=== PATIENT | female | born 1975 | race Caucasian/White ===

== ENCOUNTER 2022-08-13 14:17 | Emergency (ER) | payer MEDICAID ==
[~2022-08-13] VITALS: Ht 152.4 cm; Wt 64.0 kg
[2022-08-13 14:47] VITALS: BP 114/88
[2022-08-13 21:09] LABS: BASOPHILS % 0.5 % (0.0-2.0); CHLORIDE 95 mEq/L (98-107); EOSINOPHILS % 4.9 % (0.0-5.0); HEMATOCRIT. 44.5 % (36.0-48.0); HEMOGLOBIN. 15.5 g/dL (12.0-16.0); MEAN CORPUSCULAR HEMOGLOBIN 30.7 pg (28.0-32.0); MEAN PLATELET VOLUME 9.1 fl (7.4-10.4); MONOCYTES % 5.3 % (2.0-8.0); NEUTROPHILS % 54.3 % (40.0-76.0); PLATELET 318 x1000/uL (130-400); RED BLOOD CELL COUNT 5.06 mill/uL (4.2-5.4); RED CELL DISTRIBUTION WIDTH 13.2 % (11.6-14.6)
[2022-08-13] MEDS ORDERED: KETOROLAC 30MG/ML VIAL IV ONE (21:30)
[2022-08-13] MEDS ORDERED: SODIUM CHLORIDE 0.9% 1,000 ML IV ONE (21:30)
[2022-08-13] MEDS ORDERED: ONDANSETRON HCL 4MG/2ML INJ IV ONE (21:30)
[2022-08-13] MEDS ORDERED: INSULIN REGULAR (HUMULIN R) 300UNITS/3ML VIAL IV ONE ×2 (21:30)
[2022-08-13 21:32] LABS: CLARITY URINE CLEAR (CLEAR); COLOR URINE YELLOW (YELLOW); KETONES URINE NEGATIVE (NEGATIVE); LEUKOCYTE ESTERASE URINE NEGATIVE (NEGATIVE); NITRITE URINE POSITIVE (NEGATIVE); OCCULT BLOOD URINE NEGATIVE (NEGATIVE); PROTEIN URINE NEGATIVE (NEGATIVE); SPECIFIC GRAVITY URINE 1.034 (1.005-1.030); UROBILINOGEN URINE 0.2 E.U./dL (0.2-1.0)
[2022-08-13 21:33] LABS: HCG SCREEN NEGATIVE
[2022-08-13 21:44] LABS: *AMPHETAMINES SCREEN URINE NEGATIVE (NEGATIVE); *BARBITURATES SCREEN URINE NEGATIVE (NEGATIVE); *BENZODIAZEPINES SCREEN URINE NEGATIVE (NEGATIVE); *COCAINE SCREEN URINE NEGATIVE (NEGATIVE); CANNABINOID URINE SCREEN NEGATIVE (NEGATIVE); METHADONE URINE SCREEN NEGATIVE (NEGATIVE); OPIATES URINE SCREEN NEGATIVE (NEGATIVE); PHENCYCLIDINE URINE SCREEN NEGATIVE (NEGATIVE)
[2022-08-13] MEDS ORDERED: CEFTRIAXONE 1 G PREMIX 50 ML IV ONE (22:00)
[2022-08-14] MEDS ORDERED: CEFP200T13 MT (00:06)
[2022-08-14] MEDS ORDERED: METF-414 MT (00:06)
== END 2022-08-14 00:47 | disposition home or self-care (01) ==
LOC: ER 14:17
DX: E11.65 Type 2 diabetes mellitus with hyperglycemia (principal); N39.0 Urinary tract infection, site not specified; Z85.9 Personal history of malignant neoplasm, unspecified; Z88.0 Allergy status to penicillin
CPT/HCPCS: 36415; 80053; 80305; 81003; 81025; 82010; 82962; 83690; 84703; 85025; 96365; 96375; 99284; J0696; J1815; J1885; J2405; J7030; Z7610

== ENCOUNTER 2022-10-07 03:23 | Emergency (ER) | payer MEDICAID ==
[~2022-10-07] VITALS: Ht 160 cm; Wt 78.0 kg
[~2022-10-07 03:23] MED LIST: CEFP200T13 MT; METF-414 MT
[2022-10-07] MEDS ORDERED: ONDANSETRON HCL 4MG/2ML INJ IV STA (03:26)
[2022-10-07] MEDS ORDERED: SODIUM CHLORIDE 0.9% 1,000 ML IV ONE ×2 (03:30→06:45)
[2022-10-07 04:37] LABS: CHLORIDE 100 mEq/L (98-107)
[2022-10-07 04:43] LABS: HCG SCREEN NEGATIVE
[2022-10-07 04:44] LABS: BETA HYDROXYBUTYRATE 0.2 mMol/L (0.0-0.3); ETHANOL BLOOD 281 mg/dL
[2022-10-07 04:52] LABS: BASOPHILS % 0.5 % (0.0-2.0); EOSINOPHILS % 3.2 % (0.0-5.0); HEMATOCRIT. 39.2 % (36.0-48.0); HEMOGLOBIN. 13.5 g/dL (12.0-16.0); LYMPHOCYTES % 43.5 % (20.0-50.0); MEAN CORPUSCULAR HEMOGLOBIN 30.2 pg (28.0-32.0); MEAN PLATELET VOLUME 9.7 fl (7.4-10.4); MONOCYTES % 6.3 % (2.0-8.0); NEUTROPHILS % 46.5 % (40.0-76.0); PLATELET 286 x1000/uL (130-400); RED BLOOD CELL COUNT 4.46 mill/uL (4.2-5.4); RED CELL DISTRIBUTION WIDTH 12.8 % (11.6-14.6)
[2022-10-07 06:26] LABS: CLARITY URINE TURBID (CLEAR); COLOR URINE YELLOW (YELLOW); KETONES URINE NEGATIVE (NEGATIVE); LEUKOCYTE ESTERASE URINE TRACE (NEGATIVE); NITRITE URINE NEGATIVE (NEGATIVE); OCCULT BLOOD URINE 1+ (NEGATIVE); PROTEIN URINE NEGATIVE (NEGATIVE); SPECIFIC GRAVITY URINE 1.014 (1.005-1.030); UROBILINOGEN URINE 0.2 E.U./dL (0.2-1.0)
[2022-10-07 06:37] LABS: *AMPHETAMINES SCREEN URINE NEGATIVE (NEGATIVE); *BARBITURATES SCREEN URINE NEGATIVE (NEGATIVE); *BENZODIAZEPINES SCREEN URINE NEGATIVE (NEGATIVE); *COCAINE SCREEN URINE NEGATIVE (NEGATIVE); CANNABINOID URINE SCREEN NEGATIVE (NEGATIVE); METHADONE URINE SCREEN NEGATIVE (NEGATIVE); OPIATES URINE SCREEN NEGATIVE (NEGATIVE); PHENCYCLIDINE URINE SCREEN NEGATIVE (NEGATIVE)
[2022-10-07 07:00] VITALS: BP 91/53
[2022-10-07] MEDS ORDERED: NITR-87 MT (07:53)
== END 2022-10-07 08:40 | disposition home or self-care (01) ==
LOC: EDBD 03:23 → ER 03:23 → EDUNIT# 03:23 → ER 08:40
DX: E11.65 Type 2 diabetes mellitus with hyperglycemia (principal); I10 Essential (primary) hypertension; T51.0X1A Toxic effect of ethanol, accidental (unintentional), initial encounter; Y92.89 Other specified places as the place of occurrence of the external cause
CPT/HCPCS: 36415; 70450; 71045; 80053; 80305; 80320; 81003; 82010; 82140; 84703; 85025; 96361; 96374; 99291; J2405; J7030; Z7610; G0480

== ENCOUNTER 2023-03-14 14:33 | Emergency (ER) | payer MEDICAID ==
[~2023-03-14] VITALS: Ht 157.5 cm; Wt 64.0 kg
[~2023-03-14 14:33] MED LIST changes: +NITR-87 MT
[2023-03-14 14:38] VITALS: O2SAT 95
[2023-03-14] MEDS ORDERED: SODIUM CHLORIDE 0.9% 1,000 ML IV ONE (15:00)
[2023-03-14] MEDS ORDERED: KETOROLAC 15MG/ML VIAL IV ONE (15:15)
[2023-03-14] MEDS ORDERED: ONDANSETRON HCL 4MG/2ML INJ IV ONE (15:15)
[2023-03-14 15:40] LABS: BASOPHILS % 0.5 % (0.0-2.0); EOSINOPHILS % 3.5 % (0.0-5.0); HEMOGLOBIN. 13.8 g/dL (12.0-16.0); MEAN CORPUSCULAR HEMOGLOBIN 31.6 pg (28.0-32.0); MEAN CORPUSCULAR HGB CONC 35.3 g/dL (31.0-37.0); MEAN CORPUSCULAR VOLUME 89.3 fL (81.0-99.0); MEAN PLATELET VOLUME 9.3 fl (7.4-10.4); MONOCYTES % 5.3 % (2.0-8.0); NEUTROPHILS % 58.7 % (40.0-76.0); PLATELET 265 x1000/uL (130-400); RED BLOOD CELL COUNT 4.37 mill/uL (4.2-5.4); RED CELL DISTRIBUTION WIDTH 12.7 % (11.6-14.6); WHITE BLOOD COUNT 8.2 x1000/uL (4.5-11.0)
[2023-03-14 15:50] LABS: HCG SCREEN NEGATIVE
[2023-03-14 16:01] LABS: CHLORIDE 103 mEq/L (98-107); INDEX HEMOLYSI 4 (1-3); INDEX ICTERIC 1 (1-4); INDEX LIPEMIC 1 (1-3); PROTHROMBIN TIME 10.7 sec (9.6-11.0); SODIUM 136 mEq/L (136-145)
[2023-03-14 16:11] LABS: ALANINE AMINOTRANSFERASE 26 IU/L (13-61); ALBUMIN 3.8 g/dL (3.4-5.0); ASPARTATE AMINOTRANSFERASE 21 IU/L (15-37); BETA HYDROXYBUTYRATE 0.1 mMol/L (0.0-0.3); BILIRUBIN TOTAL 0.4 mg/dL (0.1-1.0); CALCIUM 8.8 mg/dL (8.5-10.1); CARBON DIOXIDE 24 mEq/L (21-32); CREATININE 0.7 mg/dL (0.6-1.3); PROTEIN TOTAL 7.8 g/dL (6.0-8.3); TROPONIN I HIGH SENSITIVITY 4 ng/L (<54); UREA NITROGEN BLOOD 12 mg/dL (7-21)
[2023-03-14 16:16] LABS: GLUCOSE 555 mg/dL (70-105); POTASSIUM 4.3 mEq/L (3.5-5.1)
[2023-03-14] MEDS ORDERED: INSULIN REGULAR (HUMULIN R) 300UNITS/3ML VIAL IV ONE (17:00)
[2023-03-14 17:42] LABS: CLARITY URINE CLEAR (CLEAR); COLOR URINE YELLOW (YELLOW); GLUCOSE URINE 3+ (NEGATIVE); KETONES URINE NEGATIVE (NEGATIVE); LEUKOCYTE ESTERASE URINE NEGATIVE (NEGATIVE); NITRITE URINE NEGATIVE (NEGATIVE); OCCULT BLOOD URINE NEGATIVE (NEGATIVE); PROTEIN URINE NEGATIVE (NEGATIVE); SPECIFIC GRAVITY URINE 1.022 (1.005-1.030); UROBILINOGEN URINE 0.2 E.U./dL (0.2-1.0)
[2023-03-14 17:45] LABS: BACTERIA URINE NONE SEEN; RBC URINE NONE SEEN /hpf (0-2); SQUAMOUS EPITHELIAL CELL URINE NONE SEEN /lpf (RARE/1+); WBC URINE 0-2 /hpf (0-2); YEAST URINE NONE SEEN
[2023-03-14] MEDS ORDERED: NAPR-681 MT (18:33)
[2023-03-14 19:00] VITALS: BP 138/69; PULSE 70; RESP 18; TEMP 98.2
== END 2023-03-14 19:01 | disposition home or self-care (01) ==
LOC: ER 14:58
DX: M79.601 Pain in right arm (principal); E11.65 Type 2 diabetes mellitus with hyperglycemia; I10 Essential (primary) hypertension; Z88.0 Allergy status to penicillin; Z98.890 Other specified postprocedural states
CPT/HCPCS: 80053; 81003; 81025; 82010; 82962; 84703; 83930; 85025; 85610; 84484; 36415; 71045; 70450; 72125; 93005; 96361; 96374; 96375; 99285; J1815; J1885; J2405; Z7610

== ENCOUNTER 2023-06-26 18:42 | Emergency (ER) | payer MEDICAID ==
[~2023-06-26] VITALS: Ht 152.4 cm; Wt 65.8 kg
[~2023-06-26 18:42] MED LIST changes: +NAPR-681 MT
[2023-06-26 19:15] VITALS: O2SAT 96
[2023-06-26] MEDS ORDERED: PREDNISONE 20MG TABLET PO STA (19:54)
[2023-06-26] MEDS ORDERED: ALBUTEROL (0.083%) 2.5MG/3ML NEB HHN STA (19:54)
[2023-06-26] MEDS ORDERED: IPRATROPIUM BROMIDE (0.02%) 0.5MG/2.5ML NEB HHN STA (19:54)
[2023-06-26 22:15] VITALS: PULSE 80; RESP 16
[2023-06-26] MEDS ORDERED: IPRATROPIUM BROMIDE (0.02%) 0.5MG/2.5ML NEB HHN NR (22:15)
[2023-06-26] MEDS ORDERED: ALBUTEROL (0.083%) 2.5MG/3ML NEB HHN NR (22:15)
[2023-06-26] MEDS ORDERED: PREDNISONE 20MG TABLET PO NR (22:15)
[2023-06-27] MEDS ORDERED: CEFP200T13 MT (00:21)
[2023-06-27] MEDS ORDERED: DOXY100C5 MT (00:21)
[2023-06-27] MEDS ORDERED: P20 MT (00:22)
[2023-06-27] MEDS ORDERED: ALBU6.7H15 INH (00:26)
[2023-06-27 00:54] VITALS: BP 135/77; PULSE 100; RESP 16; TEMP 98.4
== END 2023-06-27 00:51 | disposition home or self-care (01) ==
LOC: ER 18:42
DX: J45.909 Unspecified asthma, uncomplicated (principal); E11.9 Type 2 diabetes mellitus without complications; I10 Essential (primary) hypertension; Z85.9 Personal history of malignant neoplasm, unspecified; Z90.710 Acquired absence of both cervix and uterus; Z98.890 Other specified postprocedural states; Z88.0 Allergy status to penicillin; Z20.822 Contact with and (suspected) exposure to COVID-19
CPT/HCPCS: 87804 ×2; 94644; 99285; 87426; 71045; J7512; Z7610 ×3

== ENCOUNTER 2023-09-10 15:33 | Emergency (ER) | payer MEDICAID ==
[~2023-09-10] VITALS: Ht 157.5 cm; Wt 69.0 kg
[~2023-09-10 15:33] MED LIST changes: +ALBU6.7H15 INH; +DOXY100C5 MT; +P20 MT
[2023-09-10 15:36] VITALS: TEMP 98.6
[2023-09-10] MEDS ORDERED: ALBUTEROL (0.083%) 2.5MG/3ML NEB HHN STA (18:00)
[2023-09-10] MEDS ORDERED: IPRATROPIUM BROMIDE (0.02%) 0.5MG/2.5ML NEB HHN STA (18:00)
[2023-09-10] MEDS: PREDNISONE 20MG TABLET PO STA (18:33)
[2023-09-10] MEDS: ALBUTEROL (0.083%) 2.5MG/3ML NEB HHN NR (19:59)
[2023-09-10] MEDS: IPRATROPIUM BROMIDE (0.02%) 0.5MG/2.5ML NEB HHN NR (20:00)
[2023-09-10 20:23] VITALS: PULSE 73; RESP 20; O2SAT 98
[2023-09-10 21:44] VITALS: BP 124/79; PULSE 100; RESP 15
[2023-09-10] MEDS ORDERED: P20 MT (21:47)
[2023-09-10] MEDS ORDERED: ALBU6.7H15 INH (21:47)
== END 2023-09-10 22:16 | disposition home or self-care (01) ==
LOC: ER 15:33
DX: J45.901 Unspecified asthma with (acute) exacerbation (principal); E11.9 Type 2 diabetes mellitus without complications; I10 Essential (primary) hypertension; F10.20 Alcohol dependence, uncomplicated; Z85.9 Personal history of malignant neoplasm, unspecified; Z90.710 Acquired absence of both cervix and uterus; Z88.0 Allergy status to penicillin
CPT/HCPCS: 71045; 94640; 99285; J7512; Z7610 ×3

== ENCOUNTER 2024-03-26 14:25 | Emergency (ER) | payer MEDICAID ==
[~2024-03-26] VITALS: Ht 144.8 cm; Wt 63.0 kg
[2024-03-26 14:37] VITALS: O2SAT 96
[2024-03-26 14:38] VITALS: BP 116/61; TEMP 98
[2024-03-26] MEDS: PREDNISONE 20MG TABLET PO STA (18:54)
[2024-03-26] MEDS: ALBUTEROL (0.083%) 2.5MG/3ML NEB HHN STA (19:01)
[2024-03-26 19:02] VITALS: PULSE 73; RESP 16; O2SAT 94
[2024-03-26] MEDS: IPRATROPIUM BROMIDE (0.02%) 0.5MG/2.5ML NEB HHN STA (19:02)
== END 2024-03-26 21:43 | disposition left against medical advice (07) ==
LOC: ER 14:25
DX: J45.901 Unspecified asthma with (acute) exacerbation (principal); E11.9 Type 2 diabetes mellitus without complications; I10 Essential (primary) hypertension; Z88.0 Allergy status to penicillin; Z90.710 Acquired absence of both cervix and uterus; Z85.41 Personal history of malignant neoplasm of cervix uteri; Z79.84 Long term (current) use of oral hypoglycemic drugs; Z79.1 Long term (current) use of non-steroidal anti-inflammatories (NSAID)
CPT/HCPCS: 71045; 94640; 99283; J7512; Z7610 ×3

== ENCOUNTER 2024-08-21 09:10 | Emergency (ER) | payer MEDICAID ==
[~2024-08-21] VITALS: Ht 154.9 cm; Wt 68.0 kg
[2024-08-21 09:13] VITALS: O2SAT 99
[2024-08-21 09:26] VITALS: BP 117/63; PULSE 74; RESP 18; TEMP 36.7; O2SAT 98
[2024-08-21 09:56] LABS: BASOPHILS % 0.4 % (0.0-2.0); HEMATOCRIT. 40.8 % (36.0-48.0); LYMPHOCYTES % 31.1 % (20.0-50.0); MEAN CORPUSCULAR HEMOGLOBIN 30.6 pg (28.0-32.0); MEAN CORPUSCULAR HGB CONC 34.2 g/dL (31.0-37.0); MEAN CORPUSCULAR VOLUME 89.5 fL (81.0-99.0); MEAN PLATELET VOLUME 9.1 fl (7.4-10.4); MONOCYTES % 7.2 % (2.0-8.0); NEUTROPHILS % 57.3 % (40.0-76.0); PLATELET 287 x1000/uL (130-400); RED BLOOD CELL COUNT 4.56 mill/uL (4.2-5.4); RED CELL DISTRIBUTION WIDTH 12.6 % (11.6-14.6); WHITE BLOOD COUNT 7.9 x1000/uL (4.5-11.0)
[2024-08-21 10:02] LABS: CHLORIDE 107 mEq/L (98-107); SODIUM 137 mEq/L (136-145)
[2024-08-21 10:03] LABS: CALCIUM 9.5 mg/dL (8.7-10.4); CARBON DIOXIDE 24 mEq/L (21-32)
[2024-08-21 10:08] LABS: CREATININE 0.6 mg/dL (0.6-1.0); GLUCOSE 168 mg/dL (70-105); UREA NITROGEN BLOOD 13 mg/dL (9-23)
[2024-08-21] MEDS ORDERED: TOPUD MT (15:50)
[2024-08-21] MEDS ORDERED: CYCL5TAB3 MT (15:50)
[2024-08-21] MEDS ORDERED: IBUP-1523 MT (15:50)
== END 2024-08-21 16:01 | disposition home or self-care (01) ==
LOC: ER 09:10
DX: S16.1XXA Strain of muscle, fascia and tendon at neck level, initial encounter (principal); S06.0XAA Concussion with loss of consciousness status unknown, initial encounter; E11.9 Type 2 diabetes mellitus without complications; I10 Essential (primary) hypertension; J45.909 Unspecified asthma, uncomplicated; Z88.0 Allergy status to penicillin; Z79.899 Other long term (current) drug therapy; Z98.890 Other specified postprocedural states; Z90.710 Acquired absence of both cervix and uterus; W19.XXXA Unspecified fall, initial encounter; Y93.89 Activity, other specified; Y92.89 Other specified places as the place of occurrence of the external cause; Y99.8 Other external cause status
CPT/HCPCS: 36415; 80048; 85025; 99284

== ENCOUNTER 2024-12-08 18:04 | Emergency (ER) | payer MEDICAID ==
[~2024-12-08] VITALS: Ht 149.9 cm; Wt 69.0 kg
[~2024-12-08 18:04] MED LIST changes: +CYCL5TAB3 MT; +IBUP-1523 MT; +TOPUD MT
[2024-12-08 18:22] VITALS: O2SAT 92
[2024-12-08 19:07] LABS: BASOPHILS % 0.5 % (0.0-2.0); EOSINOPHILS % 1.9 % (0.0-5.0); HEMATOCRIT. 41.3 % (36.0-48.0); HEMOGLOBIN. 14.6 g/dL (12.0-16.0); LYMPHOCYTES % 24.4 % (20.0-50.0); MEAN PLATELET VOLUME 9.7 fl (7.4-10.4); MONOCYTES % 5.3 % (2.0-8.0); NEUTROPHILS % 67.9 % (40.0-76.0); PLATELET 255 x1000/uL (130-400); RED BLOOD CELL COUNT 4.69 mill/uL (4.2-5.4); RED CELL DISTRIBUTION WIDTH 12.4 % (11.6-14.6)
[2024-12-08 19:21] LABS: CREATININE 0.8 mg/dL (0.6-1.0); UREA NITROGEN BLOOD 15 mg/dL (9-23)
[2024-12-08 22:14] LABS: CLARITY URINE CLEAR (CLEAR); COLOR URINE YELLOW (YELLOW); GLUCOSE URINE 3+ (NEGATIVE); KETONES URINE TRACE (NEGATIVE); NITRITE URINE NEGATIVE (NEGATIVE); OCCULT BLOOD URINE NEGATIVE (NEGATIVE); PH URINE 5.5 (4.5-8.0); PROTEIN URINE 2+ (NEGATIVE); SPECIFIC GRAVITY URINE 1.034 (1.005-1.030)
[2024-12-08 22:15] LABS: LEUKOCYTE ESTERASE URINE NEGATIVE (NEGATIVE); UROBILINOGEN URINE 0.2 E.U./dL (0.2-1.0)
[2024-12-08 22:21] LABS: RBC URINE 0-2 /hpf (0-2); SQUAMOUS EPITHELIAL CELL URINE 1+ /lpf (RARE/1+)
[2024-12-08] MEDS: KETOROLAC 30MG/ML VIAL IM ONE (22:21)
[2024-12-08 22:22] LABS: BACTERIA URINE 3+
[2024-12-08 22:40] LABS: TROPONIN I HIGH SENSITIVITY < 4 ng/L (3.0-34)
[2024-12-08 22:41] LABS: ASPARTATE AMINOTRANSFERASE 24 IU/L (<34); BILIRUBIN DIRECT 0.1 mg/dL (<=3.0); BILIRUBIN TOTAL 0.5 mg/dL (0.1-1.0); PROTEIN TOTAL 7.8 g/dL (6.0-8.3)
[2024-12-08] MEDS ORDERED: IBUP-2029 MT (23:34)
[2024-12-08] MEDS ORDERED: METF-415 MT (23:34)
[2024-12-08] MEDS ORDERED: ONDA-239 PO (23:34)
[2024-12-08] MEDS ORDERED: CEPH500T MT (23:38)
[2024-12-08 23:43] VITALS: BP 145/78; PULSE 74; RESP 19; TEMP 36.9; O2SAT 95
== END 2024-12-08 23:46 | disposition home or self-care (01) ==
LOC: ER 18:04
DX: N39.0 Urinary tract infection, site not specified (principal); R10.13 Epigastric pain; E11.65 Type 2 diabetes mellitus with hyperglycemia; I10 Essential (primary) hypertension; J45.909 Unspecified asthma, uncomplicated; F10.90 Alcohol use, unspecified, uncomplicated; Z76.0 Encounter for issue of repeat prescription; Z79.1 Long term (current) use of non-steroidal anti-inflammatories (NSAID); Z79.84 Long term (current) use of oral hypoglycemic drugs; Z90.710 Acquired absence of both cervix and uterus; Z88.0 Allergy status to penicillin; Z79.899 Other long term (current) drug therapy; Y90.9 Presence of alcohol in blood, level not specified
CPT/HCPCS: 99285; 74176; 80076; 80048; 81003; 83690; 85025; 84484; 36415; 93005; 96372; J1885